=== PATIENT | female | born 1980 ===

== ENCOUNTER → 2019-09-26 | Outpatient (CLI) | payer OTHER ==
--- NOTE | 2019-09-26 10:30 | RAD ---
DATE: 09/26/2019 8:36 AM EXAM: US GUID NDL PLACE/ASPI/BX HISTORY: 38-year-old woman with an upper inner right breast mass recommended for biopsy. She has noticed this lump since January 2019. She is due for screening but declines diagnostic mammography at this visit. COMPARISON: Right breast ultrasound of 04/30/2019 TECHNIQUE AND FINDINGS: Informed consent was obtained and an appropriate procedural pause observed. Using standard sterile technique, ultrasound guidance and local anesthesia, two spring-loaded 14-gauge core biopsy samples of the 5 cm mass in the upper inner right breast were obtained and placed in formalin. An S shaped biopsy marker was placed and hemostasis assured with direct breast compression for 10 minutes. Puncture site was dressed and postprocedure instructions were reviewed. Patient declined postprocedure mammography. There were no apparent complications. IMPRESSION: Successful ultrasound-guided right breast core needle biopsy of the mass in the upper inner right breast. Pathology results are pending. An addendum will be issued once pathology results become available.
== END | disposition home or self-care (01) ==
LOC: US 08:36
PROVIDERS: ATTEND Surgery
DX: N63.10 Unspecified lump in the right breast, unspecified quadrant (principal)
CPT/HCPCS: 76942; C1713